=== PATIENT | female | born 1995 | race Two or more races ===

== ENCOUNTER 2016-09-04 20:54 | Observation (INO) | payer MEDICAID ==
[2016-09-04] MEDS ORDERED: fentaNYL 100 MCG/2 ML INJ IVP ONE (21:40)
[2016-09-04 21:50] LABS: % IMMATURE GRANULYOCYTES 0.7 % (0.0-1.1); ADD DIFF? NO; ADD MORPH? NO; ADD SCAN? NO; ATYPICAL LYMPHOCYTE FLAG 0 (0-99); FRAGMENT RBC FLAG 0 (0-99); HEMATOCRIT 33.1 % (38.0-47.0); HEMOGLOBIN 10.6 g/dL (12.6-16.3); LEFT SHIFT FLG 0 (0-99); LIPEMIA HEMOLYSIS FLAG 80 (0-99); MEAN CELL HEMOGLOBIN 27.2 pg (27.9-34.1); MEAN CELL VOLUME 84.9 fL (81.5-99.8); MEAN PLATELET VOLUME 10.3 fL (8.7-11.7); PLATELET CLUMPS FLAG 0 (0-99); PLATELET COUNT 397 10^3/uL (150-400); RED CELL DISTRIBUTION WIDTH 13.3 % (11.5-15.2)
[2016-09-04 22:12] LABS: ALANINE AMINOTRANSFERASE 49 IU/L (9-52); ALBUMIN 3.5 g/dL (3.5-5.0); ALKALINE PHOSPHATASE 139 IU/L (38-126); AMYLASE 67 IU/L (30-110); ANION GAP 13 mEq/L (8-16); ASPARTATE AMINOTRANSFERASE 23 IU/L (14-46); BILIRUBIN,TOTAL 0.5 mg/dL (0.1-1.4); CALCIUM 9.4 mg/dL (8.5-10.4); CARBON DIOXIDE 17 mEq/l (22-31); CHLORIDE 111 mEq/L (97-110); CREATININE 0.5 mg/dL (0.6-1.0); GLOMERULAR FILTRATION RATE > 60; GLUCOSE 102 mg/dL (70-100); POTASSIUM 3.5 mEq/L (3.5-5.2); SODIUM 141 mEq/L (134-144); TOTAL PROTEIN 6.6 g/dL (6.3-8.2)
[2016-09-04 22:40] LABS: COLOR YELLOW; LEUKOCYTE ESTERASE,URINE NEGATIVE (NEGATIVE); NITRITE,URINE NEGATIVE (NEGATIVE)
[2016-09-04] MEDS ORDERED: LR 1,000 ML IV SCH (23:30)
[2016-09-04] MEDS ORDERED: PROMETHAZINE HCL 25 MG/ML INJ IVP ONE (23:30)
[2016-09-05 05:59] LABS: % IMMATURE GRANULYOCYTES 0.6 % (0.0-1.1); ABSOLUTE IMMATURE GRANULOCYTES 0.08 10^3/uL (0.00-0.10); ADD DIFF? NO; ADD MORPH? NO; ADD SCAN? NO; ATYPICAL LYMPHOCYTE FLAG 10 (0-99); FRAGMENT RBC FLAG 0 (0-99); HEMATOCRIT 34.3 % (38.0-47.0); HEMOGLOBIN 10.8 g/dL (12.6-16.3); LEFT SHIFT FLG 10 (0-99); LIPEMIA HEMOLYSIS FLAG 80 (0-99); MEAN CELL HEMOGLOBIN 27.4 pg (27.9-34.1); MEAN CELL HEMOGLOBIN CONCENTR. 31.5 g/dL (32.4-36.7); MEAN CELL VOLUME 87.1 fL (81.5-99.8); MEAN PLATELET VOLUME 9.8 fL (8.7-11.7); PLATELET CLUMPS FLAG 0 (0-99); PLATELET COUNT 365 10^3/uL (150-400); RED BLOOD CELL COUNT 3.94 10^6/uL (4.18-5.33); RED CELL DISTRIBUTION WIDTH 13.4 % (11.5-15.2)
[2016-09-05 06:13] LABS: ALANINE AMINOTRANSFERASE 49 IU/L (9-52); ALBUMIN 3.5 g/dL (3.5-5.0); ALKALINE PHOSPHATASE 136 IU/L (38-126); ANION GAP 11 mEq/L (8-16); ASPARTATE AMINOTRANSFERASE 25 IU/L (14-46); BILIRUBIN,TOTAL 0.6 mg/dL (0.1-1.4); CALCIUM 9.8 mg/dL (8.5-10.4); CARBON DIOXIDE 21 mEq/l (22-31); CHLORIDE 112 mEq/L (97-110); CREATININE 0.5 mg/dL (0.6-1.0); GLOMERULAR FILTRATION RATE > 60; GLUCOSE 72 mg/dL (70-100); POTASSIUM 4.3 mEq/L (3.5-5.2); SODIUM 144 mEq/L (134-144); TOTAL PROTEIN 6.6 g/dL (6.3-8.2)
--- NOTE | 2016-09-05 09:30 | OBPROG ---
OBG Labor Progress Note Assessment/Plan: Assessment:cat1 fhr denies pain vs wnl denies leaking, bleeding, and cramping dc iv labs wnl no longer feeling epigastric pain Plan:Discharge to home with instructions fu in her providers office on wednesday. Begin zantac 150 mg bid to assist with reflux 09/05/16 09:24 Subjective: Denies pain this morning. I think I can go home today. I am feeling much better. I can collect the stool for h. pylori and either bring here or bring to fu appt on wednesday with my provider Objective: 09/05/16 05:50 09/05/16 05:50 Total Bilirubin 0.6 mg/dL (0.1-1.4) 09/05/16 05:50 AST 25 IU/L (14-46) 09/05/16 05:50 ALT 49 IU/L (9-52) 09/05/16 05:50 - Physical Exam General Appearance: WD/WN, alert, no apparent distress Respiratory: chest non-tender, lungs clear, normal breath sounds Cardiac/Chest: regular rate, rhythm Abdomen: normal bowel sounds Extremities: normal range of motion, Nixon's sign (negative bilaterally) DTR- Lower Extremities: Knee (R): 1+, Knee (L): 1+ (no clonus bilaterally) Skin: normal color, warm/dry Neuro/Psych: no motor/sensory deficits, alert, normal mood/affect, oriented x 3 Oxytocin Orders Assessment - Pre-Induction/Augmentation Assessment Gestational Age: 27 week(s) and 3 day(s) ICD10 Worksheet Patient Problems: Problems Problem Status Onset Epigastric pain Acute - ICD10 Problem Qualifiers (1) Epigastric pain
[2016-09-05] MEDS ORDERED: RANITIDINE HCL 150 MG/10 ML UDCUP PO SCH (09:45)
--- NOTE | 2016-09-05 13:01 | GHP ---
[f rep st] HISTORY AND PHYSICAL DATE OF ADMISSION: 09/04/2016 HISTORY OF PRESENT ILLNESS: Patient is a 21-year-old, 2, para 1, with a gestational age of 27-3/7 weeks and an EDC of 12/02/2016. Patient routinely receives care through [facility] [place] with Katelynn Redding CNM, and has been seeking care since early in her . Patient comes in on 09/04/2016 with complaints of pain epigastrically since 6 p.m., on 09/04/2016. Pain began after she ate some potato salad at a family function. Patient complained of pain between 8 and 10. Denied contractions. Denied leaking, bleeding, and cramping with assessment. Patient was given fentanyl to assist with her pain, assisted for a while. An abdominal ultrasound as well as a pelvic ultrasound was completed, and those were within normal limits. After those were completed , patient again complained of pain between an 8 and a 10, and morphine was given. Today, on 09/05/2016, patient denies pain, has resolved, and states would like to go home. On NST, baby is category 1; NST is reactive and reassuring. MEDICAL HISTORY: Patient has a history of gallbladder difficulties. SURGICAL HISTORY: Gallbladder surgery in 2016. FAMILY HISTORY: Noncontributory. SOCIAL HISTORY: Patient is , a nonsmoker, a non-drug user, and has 1 other child in her home. PREVIOUS HISTORY: Patient had a vaginal delivery in 2013. PRESENT HISTORY: Patient denies any difficulties with this other than the pain that she had yesterday. LABORATORY DATA: Patient is anemic with hematocrit 34.3. Platelet count is within normal limits. CMP was within normal limits. On admission, patient was dehydrated. Since then, patient has received 3 L of LR. PHYSICAL EXAMINATION: Patient is awake, alert, and oriented x3. Lungs are clear bilaterally. Bowel sounds are positive in all 4 quadrants. DTRs are 1+ bilaterally with no clonus. Homans sign is negative bilaterally. Pain level at this time, with assessment in early a.m. on 09/05/2016 is zero. On palpation , abdomen is soft. NST is category 1. No contractions, no bleeding, no leaking , and no cramping PLAN OF CARE: Patient will be discharged to home. Was attempting to do an H pylori. Will give the patient the option to continue to collect and take to her [facility]up [facility]. The patient verbalized understanding of reasons to return: Leaking, bleeding, cramping, baby not moving, increased pain. /[id number]/MODL MTDD
== END 2016-09-05 10:30 | disposition home or self-care (01) ==
LOC: FLD 20:54
PROVIDERS: ADMIT Obstetrics & Gynecology; ATTEND Obstetrics & Gynecology
DX: O99.89 Other specified diseases and conditions complicating pregnancy, childbirth and the puerperium (principal); O99.012 Anemia complicating pregnancy, second trimester; R10.9 Unspecified abdominal pain; D64.9 Anemia, unspecified; Z3A.27 27 weeks gestation of pregnancy
CPT/HCPCS: 76700; 76805; G0378; 80305; J2550; J3010